=== PATIENT | male | born 1990 | race African-American/Black ===

== ENCOUNTER 2024-12-28 22:52 | Emergency (ER) | payer MEDICAID ==
[~2024-12-28] VITALS: Ht 170.2 cm; Wt 77.1 kg
[2024-12-28 23:48] VITALS: BP 132/78; TEMP 98; O2SAT 98
[2024-12-29] MEDS ORDERED: DOXY-326 PO
[2024-12-29] MEDS ORDERED: DOXYCYCLINE HYCLATE (100 MG) 100 MG TABLET ONE (00:04)
[2024-12-29] MEDS: DOXYCYCLINE HYCLATE (100 MG) 100 MG TABLET PO ONE (00:08)
== END 2024-12-29 00:32 | disposition home or self-care (01) ==
LOC: ER 22:56
DX: A53.9 Syphilis, unspecified (principal); J45.909 Unspecified asthma, uncomplicated; Z11.3 Encounter for screening for infections with a predominantly sexual mode of transmission